=== PATIENT | female | born 1935 | race Two or more races ===

== ENCOUNTER 2020-05-28 15:08 | Inpatient (IN) | payer OTHER ==
[~2020-05-28] VITALS: Ht 152.4 cm; Wt 59.0 kg
== END 2020-06-03 15:23 | disposition home or self-care (01) | DRG 690 ==
LOC: ER 15:08 → MEDJ 20:15
PROVIDERS: ADMIT Internal Medicine; ATTEND Internal Medicine
PROC: BT43ZZZ Ultrasonography of Bilateral Kidneys (ICD-10-PCS; principal; 2020-05-29)
PROC: BW4GZZZ Ultrasonography of Pelvic Region (ICD-10-PCS; 2020-05-30)
DX: N39.0 Urinary tract infection, site not specified (principal); B95.2 Enterococcus as the cause of diseases classified elsewhere; B37.9 Candidiasis, unspecified; N12 Tubulo-interstitial nephritis, not specified as acute or chronic; I11.9 Hypertensive heart disease without heart failure; I65.23 Occlusion and stenosis of bilateral carotid arteries; E78.5 Hyperlipidemia, unspecified; Z20.828 Contact with and (suspected) exposure to other viral communicable diseases

== ENCOUNTER 2021-11-08 17:29 | Emergency (ER) | payer OTHER ==
[~2021-11-08] VITALS: Ht 154.9 cm; Wt 50.8 kg
[2021-11-08] MEDS ORDERED: ZETIA10 MG PO (17:37)
[2021-11-08] MEDS ORDERED: PLAVIX75 MG PO (17:37)
[2021-11-08] MEDS ORDERED: KAPSPARGO SPRIN25 MG PO (17:37)
== END 2021-11-08 22:00 | disposition home or self-care (01) ==
LOC: ER 17:29
DX: U07.1 COVID-19 (principal); I10 Essential (primary) hypertension; Z88.0 Allergy status to penicillin; Z88.8 Allergy status to other drugs, medicaments and biological substances